=== PATIENT | female | born 1975 | race Hispanic/Latino ===

== ENCOUNTER 2019-09-13 16:30 | Emergency (ER) | payer BC ==
[~2019-09-13] VITALS: Ht 162.6 cm; Wt 61.2 kg
[2019-09-13] MEDS ORDERED: CVS OMEPRAZOLE20 MG PO (17:04)
[2019-09-13] MEDS ORDERED: CETI10TA PO (17:04)
[2019-09-13] MEDS ORDERED: LITHIUM CARB300 MG PO (17:04)
[2019-09-13] MEDS ORDERED: SEROQUEL400 MG PO (17:05)
[2019-09-13 18:01] LABS: PLATELET COUNT 282 K/uL (152-353)
[2019-09-13 18:24] LABS: POTASSIUM 3.2 mmol/L (3.6-5.2)
[2019-09-13 19:27] VITALS: BP 115/81; TEMP 99.8
== END 2019-09-13 19:30 | disposition home or self-care (01) ==
LOC: ED 16:30
PROVIDERS: Student in an Organized Health Care Education/Training Program
DX: R51 Headache (principal); B37.0 Candidal stomatitis; N39.0 Urinary tract infection, site not specified; R50.9 Fever, unspecified; E86.0 Dehydration
CPT/HCPCS: 36415; 80053; 80178; 81000; 81025; 83735; 84443; 85027; 87040; 87077; 87086; 87088; 87186; 87502; 87651; 96361; 96365; 96375; 99284; J0696; J1885

== ENCOUNTER 2020-10-01 09:37 | Day surgery (SDC) | payer BC ==
[2020-09-22 10:59] LABS: PLATELET COUNT 212 K/uL (152-353)
[2020-09-22 11:08] LABS: POTASSIUM 3.9 mmol/L (3.6-5.2)
[~2020-10-01] VITALS: Ht 30.5 cm; Wt 0.5 kg
[~2020-10-01 09:37] MED LIST: CETI10TA PO; CVS OMEPRAZOLE20 MG PO; LITHIUM CARB300 MG PO; SEROQUEL400 MG PO
== END 2020-10-01 12:30 | disposition home or self-care (01) ==
LOC: OR 09:37
PROVIDERS: ATTEND Internal Medicine Gastroenterology
PROC: 0DJD8ZZ Inspection of Lower Intestinal Tract, Via Natural or Artificial Opening Endoscopic (ICD-10-PCS; principal; 2020-10-01)
DX: K64.8 Other hemorrhoids (principal); Z12.11 Encounter for screening for malignant neoplasm of colon; Z80.0 Family history of malignant neoplasm of digestive organs
CPT/HCPCS: 80053; 85027; J2704

== ENCOUNTER 2020-12-03 11:33 | Day surgery (SDC) | payer BC ==
[2020-12-01 10:26] LABS: PLATELET COUNT 225 K/uL (152-353)
[2020-12-01 10:33] LABS: POTASSIUM 4.6 mmol/L (3.6-5.2)
[~2020-12-03] VITALS: Ht 30.5 cm; Wt 0.5 kg
== END 2020-12-03 14:48 | disposition home or self-care (01) ==
LOC: OR 11:33
PROVIDERS: ATTEND Internal Medicine Gastroenterology
PROC: 0DB68ZZ Excision of Stomach, Via Natural or Artificial Opening Endoscopic (ICD-10-PCS; principal; 2020-12-03)
PROC: 0DB88ZZ Excision of Small Intestine, Via Natural or Artificial Opening Endoscopic (ICD-10-PCS; 2020-12-03)
DX: K29.50 Unspecified chronic gastritis without bleeding (principal); K21.00 Gastro-esophageal reflux disease with esophagitis, without bleeding; R10.13 Epigastric pain; R11.0 Nausea; K25.9 Gastric ulcer, unspecified as acute or chronic, without hemorrhage or perforation; Z20.828 Contact with and (suspected) exposure to other viral communicable diseases
CPT/HCPCS: 80053; 85027; 87635; J2704; U0003

== ENCOUNTER 2021-07-28 17:18 | Outpatient (CLI) | payer BC | END 2021-07-28 20:10 | disposition home or self-care (01) | LOC: RAD 17:18 | PROVIDERS: ATTEND Nurse Practitioner Family | DX: M54.9 Dorsalgia, unspecified (principal); M25.522 Pain in left elbow; M25.561 Pain in right knee; M54.2 Cervicalgia; W01.0XXA Fall on same level from slipping, tripping and stumbling without subsequent striking against object, initial encounter ==

== ENCOUNTER 2021-09-21 13:29 | Outpatient (CLI) | payer BC | END 2021-09-21 19:03 | disposition home or self-care (01) | LOC: MAMMO 13:29 | PROVIDERS: ATTEND Nurse Practitioner Family | DX: M47.812 Spondylosis without myelopathy or radiculopathy, cervical region (principal); M47.896 Other spondylosis, lumbar region; Z12.31 Encounter for screening mammogram for malignant neoplasm of breast ==

== ENCOUNTER 2021-11-06 19:11 | Emergency (ER) | payer BC ==
[~2021-11-06] VITALS: Ht 165.1 cm; Wt 49.9 kg
[2021-11-06 20:22] LABS: POTASSIUM 3.2 mmol/L (3.6-5.2)
[2021-11-06 20:29] LABS: PLATELET COUNT 220 K/uL (152-353)
[2021-11-06 21:40] VITALS: BP 138/65; TEMP 98.9
== END 2021-11-06 21:40 | disposition home or self-care (01) ==
LOC: ED 19:11
PROVIDERS: Hospitalist
DX: R10.84 Generalized abdominal pain (principal); K27.9 Peptic ulcer, site unspecified, unspecified as acute or chronic, without hemorrhage or perforation; R11.2 Nausea with vomiting, unspecified
CPT/HCPCS: 36415; 80053; 80320; 83690; 85027; 96360; 96375; 99284; J1885; J2405

== ENCOUNTER 2022-06-10 09:08 | Outpatient (CLI) | payer BC | END 2022-06-10 20:55 | disposition home or self-care (01) | LOC: US 09:08 | PROVIDERS: ATTEND Nurse Practitioner | DX: R10.11 Right upper quadrant pain (principal); R51.9 Headache, unspecified | CPT/HCPCS: 36415; 82565; 84520; A9576 ==

== ENCOUNTER 2022-06-11 08:16 | Outpatient (CLI) | payer BC | END 2022-06-11 19:05 | disposition home or self-care (01) | LOC: NM 08:16 | PROVIDERS: ATTEND Nurse Practitioner | DX: R10.11 Right upper quadrant pain (principal); R11.0 Nausea | CPT/HCPCS: A9537 ==

== ENCOUNTER 2022-10-01 13:55 | Outpatient (CLI) | payer BC | END 2022-10-01 23:39 | disposition home or self-care (01) | LOC: RAD 13:55 | PROVIDERS: ATTEND Nurse Practitioner | DX: M54.6 Pain in thoracic spine (principal) ==

== ENCOUNTER 2022-10-08 08:04 | Outpatient (CLI) | payer BC | END 2022-10-08 19:50 | disposition home or self-care (01) | LOC: NM 08:04 | PROVIDERS: ATTEND Internal Medicine Gastroenterology | DX: R11.0 Nausea (principal) | CPT/HCPCS: A9541 ==

== ENCOUNTER 2022-11-26 10:58 | Emergency (ER) | payer OTHER ==
[~2022-11-26] VITALS: Ht 162.6 cm; Wt 49.9 kg
[2022-11-26 12:20] LABS: PLATELET COUNT 175 K/uL (152-353)
[2022-11-26 13:04] LABS: POTASSIUM 3.7 mmol/L (3.6-5.2)
[2022-11-26 19:35] VITALS: BP 101/60; TEMP 98.4
== END 2022-11-26 19:40 | disposition home or self-care (01) ==
LOC: ED 10:58
PROVIDERS: Emergency Medicine
DX: F33.8 Other recurrent depressive disorders (principal); Z20.822 Contact with and (suspected) exposure to COVID-19
CPT/HCPCS: 80053; 80143; 80179; 80307; 80320; 81002; 81025; 85027; 87040; 87635; 93005; 96360; 99285; U0003